=== PATIENT | male | born 1990 | race Caucasian/White ===

== ENCOUNTER 2023-12-18 15:43 | Outpatient (CLI) | payer OTHER, SELFPAY ==
--- NOTE | 2023-12-18 15:55 | XR_ITS ---
PROCEDURE INFORMATION: Exam: XR Left Hand Exam date and time: 12/18/2023 4:05 PM Age: 33 years old Clinical indication: Pain; Hand; Left; Additional info: Arthritis & carpal tunnel TECHNIQUE: Imaging protocol: Radiologic exam of the left hand. Views: 1 or 2 views. COMPARISON: No relevant prior studies available. FINDINGS: Bones/joints: Normal mineralization. No visualized discrete erosive change. Good preservation of articular cartilage spaces. No acute fracture or subluxation. Soft tissues: Normal. IMPRESSION: Unremarkable left hand.
--- NOTE | 2023-12-18 15:55 | XR_ITS ---
PROCEDURE INFORMATION: Exam: XR Right Hand Exam date and time: 12/18/2023 4:05 PM Age: 33 years old Clinical indication: Condition or disease; Arthritis; Type not specified; Hand; Right; Additional info: Arthritis & carpal tunnel TECHNIQUE: Imaging protocol: Radiologic exam of the right hand. Views: 1 or 2 views. COMPARISON: No relevant prior studies available. FINDINGS: Bones/joints: Normal mineralization. Good preservation of articular cartilage spaces. No discrete erosive change. Fractures of the tuft distal phalanx of the ring finger possibly acute on chronic injury. Soft tissues: Normal. IMPRESSION: 1. Normal mineralization. Good preservation of articular cartilage spaces. No discrete erosive change. 2. Fractures of the tuft distal phalanx of the ring finger possibly acute on chronic injury.
== END 2023-12-18 23:59 | disposition home or self-care (01) ==
LOC: RAD 15:50
PROVIDERS: Visit Provider Chiropractor
DX: M13.841 Other specified arthritis, right hand (principal); M13.842 Other specified arthritis, left hand
CPT/HCPCS: 73120